=== PATIENT | female | born 1990 | race Caucasian/White ===

== ENCOUNTER 2018-02-18 17:04 | Emergency (ER) | payer MEDICAID ==
--- NOTE | 2018-02-18 17:23 | Emergency Department Record ---
History of Present Illness - General Chief complaint: complication Stated complaint: /LOWER ABDOMINAL PAIN Time Seen by Provider: 02/18/18 17:11 Source: Patient Mode of Arrival: Ambulatory Limitations: No limitations - History of Present Illness Initial comments: 27 yo female presents with lower pelvic pain at 10 weeks . She states this is her third . She has miscarriages at 5 weeks and 6months (cord wrapped around neck). She has had discomfort for several weeks but it seems increased. No vaginal fluids, discharge or bleeding. She has had typical early symptoms including fatigue and nausea. She established a new PCP last week at the [facility]. No OB at this time. She is otherwise healthy. MD Complaint: Abdominal pain -: Week(s) Radiation: Suprapubic Severity: Moderate Quality: Aching, Cramping Consistency: Intermittent Improves with: None Worsens with: None Associated symptoms: Denies other symptoms Vaginal bleeding: None Miscarriage - Related Data Previous Rx's Medication Instructions Recorded Clindamycin HCl 300 mg PO TID #21 capsule 02/18/18 Allergies Allergy/AdvReac Type Severity Reaction Status Date / Time atomoxetine HCl AdvReac Severe NAUSEA AND Verified 02/18/18 17:14 [From Strattera] VOMITING Review of Systems Constitutional: Denies: Chills, Fever, Malaise, Night sweats, Weakness Eyes: Denies: Eye discharge, Eye pain, Photophobia, Vision change ENT: Denies: Congestion, Throat pain Respiratory: Denies: Cough Cardiovascular: Denies: Chest pain, Palpitations, Syncope Endocrine: Reports: Fatigue. Denies: Polydipsia, Polyuria Gastrointestinal: Reports: As per HPI, Abdominal pain, Nausea. Denies: Constipation, Diarrhea, Hematemesis, Hematochezia, Melena, Vomiting Genitourinary: Denies: Dysuria, Urgency Musculoskeletal: Denies: Arthralgia, Back pain, Joint swelling, Myalgia Skin: Denies: Bruising, Change in color, Rash Neurological: Denies: Headache, Numbness, Vertigo, Weakness Psychiatric: Denies: Anxiety Hematological/Lymphatic: Denies: Anemia, Blood Clots, Easy bleeding, Easy bruising, Swollen glands Physical Exam - General General Appearance: Alert, Oriented x3, Cooperative, No acute distress Limitations: No limitations - Head Head exam: Normal inspection - Eye Eye exam: Normal appearance, PERRL. negative: Conjunctival injection, Scleral icterus - ENT ENT exam: Normal exam, Mucous membranes moist Ear exam: Normal external inspection Nasal Exam: Normal inspection Mouth exam: Normal external inspection Teeth exam: Normal inspection - Neck Neck exam: Normal inspection, Full ROM. negative: Tenderness - Respiratory Respiratory exam: Normal lung sounds bilaterally. negative: Respiratory distress, Rhonchi, Stridor, Wheezes - Cardiovascular Cardiovascular Exam: Regular rate, Normal rhythm, Normal heart sounds - GI/Abdominal GI/Abdominal exam: Soft. negative: Distended, Guarding, Rebound, Rigid - Rectal Rectal exam: Deferred - exam: Vaginal discharge (thin white). negative: Abnormal external exam, Adnexal mass (L), Adnexal mass (R), Adnexal tenderness (L), Adnexal tenderness ( R), Cervical discharge, cervical motion tenderness, Vaginal bleeding - Extremities Extremities exam: Normal inspection - Back Back exam: Reports: Normal inspection, Full ROM. Denies: CVA tenderness (R), CVA tenderness (L), Muscle spasm, Rash noted, Tenderness - Neurological Neurological exam: Alert, Normal gait, Oriented X3 - Psychiatric Psychiatric exam: Normal affect, Normal mood - Skin Skin exam: Dry, Intact, Normal color, Warm Course - Reevaluation(s) Reevaluation #1: 02/18/18 17:43 The CBC was reviewed No acute changes The UA is normal 02/18/18 18:08 The Quant is [id number] She is Rh Positive 02/18/18 18:08 02/18/18 18:47 The US was normal with SLIUP HR 167. 02/18/18 19:13 The Wet Prep demonstrated Clue cells She was given antibiotics given she is symptomatic We discussed the results, follow up and reasons to return to the ED Medical Decision Making - Lab Data Result diagrams: 02/18/18 17:20 02/18/18 17:20 Disposition Disposition: Discharge Clinical Impression: First trimester , Pelvic pain, Bacterial vaginosis Disposition: Home, Self-Care Condition: (1) Good Instructions: (ED), Bacterial Vaginosis (ED) Additional Instructions: Take the antibiotic until gone Call for an OB doctor for this Return if worse, pain, fever, bleeding or concern Prescriptions: Clindamycin HCl 300 mg PO TID #21 capsule Referrals: NEGRO CISNEROS [DOCTOR OF OSTEOPATH] - Forms: Patient Portal Access Time of Disposition: 19:03 Quality - Quality Measures Quality Measures: N/A - Blood Pressure Screening Does Patient Have Any of the Following: No Blood Pressure Classification: Normal BP Reading Systolic Measurement: 113 Diastolic Measurement: 77 Screening for High Blood Pressure: < Normal BP, F/U Not Required > [G8783]
[2018-02-18 17:28] LABS: URINE APPEARANCE CLEAR; URINE BILIRUBIN NEGATIVE (NEGATIVE); URINE BLOOD NEGATIVE (NEGATIVE); URINE COLOR YELLOW; URINE GLUCOSE (UA) NEGATIVE (NEGATIVE); URINE KETONE NEGATIVE (NEGATIVE); URINE LEUKOCYTE ESTERASE NEGATIVE (NEGATIVE); URINE NITRITE NEGATIVE (NEGATIVE); URINE PROTEIN NEGATIVE (NEGATIVE); URINE UROBILINOGEN 0.2 E.U./dL (0.20 - 1.00)
[2018-02-18 17:29] LABS: BASO % 0.2 % (0-6); EOS % 0.6 % (0-6); GRAN % 74.3 % (47-80); HEMATOCRIT 39.7 % (35.0-47.0); LYMPH % 18.3 % (16-45); MEAN CELL VOLUME 85.6 fl (81-97); MEAN CORPUSCULAR HGB CONC 32.7 g/dl (32-36); MEAN PLATELET VOLUME 11.2 fl (7.4-10.4); MONO % 6.6 % (0-9); PLATELET COUNT 237 K/uL (130-400); RED BLOOD COUNT 4.64 M/uL (3.80-5.40); RED CELL DISTRIBUTION WIDTH 12.6 % (11.5-14.5); WHITE BLOOD COUNT W/O DIFF 9.8 K/uL (4.2-12.2)
[2018-02-18 17:51] LABS: BLOOD UREA NITROGEN 10 mg/dL (6-20); CREATININE 0.5 mg/dL (0.5-0.9); EST GLOMERULAR FILTRATION RATE > 60 mL/min
[2018-02-18 17:54] LABS: GLUCOSE,RANDOM 108 mg/dL (74-109)
[2018-02-18 17:57] LABS: TOTAL B-hCG 254008 mIU/mL
[2018-02-18] MEDS: CLINDAMYCIN 150 MG CAP PO ONE (19:12)
--- NOTE | 2018-02-19 09:53 | ULTRASOUND REPORT ---
EXAM: FIRST TRIMESTER ULTRASOUND HISTORY: , LOWER ABDOMINAL PAIN. TECHNIQUE: Transvaginal and transabdominal sonographic evaluation of first trimeter was performed with the addition of Doppler. FINDINGS: There is a single live intrauterine with a sonographic age of 10 weeks 4 days. heart tones measures 167 b.p.m. The amniotic fluid volume appears subjectively normal. The placenta is still forming. The ovaries are within normal limits. There is normal arterial and venous flow. IMPRESSION: SINGLE LIVE INTRAUTERINE WITH A SONOGRAPHIC AGE OF 10 WEEKS 4 DAYS. THE AMNIOTIC FLUID VOLUME APPEARS SUBJECTIVELY NORMAL. THE PLACENTA IS STILL FORMING. THE HEART TONES MEASURE 167 B.P.M. JOB NUMBER: [id number] MTDD
== END 2018-02-18 19:16 | disposition home or self-care (01) ==
LOC: ER 17:04
DX: O23.591 Infection of other part of genital tract in pregnancy, first trimester (principal); R10.2 Pelvic and perineal pain; N76.0 Acute vaginitis; R11.0 Nausea
CPT/HCPCS: 76801; 76817; 80048; 81003; 84702; 85025; 86901; 87210; 99284